=== PATIENT | male | born 1965 | race Hispanic/Latino ===

== ENCOUNTER 2020-07-16 13:09 | Emergency (ER) | payer SELFPAY ==
[2020-07-16] MEDS ORDERED: SODIUM CHLORIDE 0.9% 1000 ML 1,000 ML IV ONE (13:26)
[2020-07-16 14:00] VITALS: BP 165/94
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
[2020-07-16 15:17] LABS: Basophils # (Auto) 0.1 K/mm3 (0.0-0.1); Eosinophils # (Auto) 0.2 K/mm3 (0.0-0.4); Eosinophils % (Auto) 3.4 % (0.0-4.3); Hematocrit 43.3 % (35.5-45.6); Hemoglobin 14.8 gm/dl (11.8-15.2); Lymphocytes # (Auto) 1.4 K/mm3 (1.2-5.4); Lymphocytes % (Auto) 20.1 % (13.4-35.0); Mean Corpuscular HGB Conc 34 % (32-34); Mean Corpuscular Volume 87 fl (84-94); Monocytes # (Auto) 0.7 K/mm3 (0.0-0.8); Monocytes % (Auto) 10.2 % (0.0-7.3); Platelet Count 288 K/mm3 (140-440); Red Blood Count 4.95 M/mm3 (3.65-5.03); Red Cell Distribution Width 13.2 % (13.2-15.2)
[2020-07-16 15:22] LABS: Creatine Kinase MB 4.4 ng/mL (0.0-4.0)
[2020-07-16 15:23] LABS: Alanine Aminotransferase 37 units/L (7-56); Albumin 4.5 g/dL (3.9-5); BUN/Creatinine Ratio 19; Blood Urea Nitrogen 15 mg/dL (9-20); Calcium 9.3 mg/dL (8.4-10.2); Hemolysis Index 2
[2020-07-16 15:25] LABS: Partial Thromboplastin Time 28.2 Sec. (24.2-36.6)
[2020-07-16 15:26] LABS: Thrombin Time 17.2 Sec. (15.1-19.6)
== END 2020-07-16 15:25 | disposition left against medical advice (07) ==
LOC: ED 13:09
DX: S06.0X9A Concussion with loss of consciousness of unspecified duration, initial encounter (principal); R07.89 Other chest pain; Z87.891 Personal history of nicotine dependence; V49.69XA Unspecified car occupant injured in collision with other motor vehicles in traffic accident, initial encounter; Y93.89 Activity, other specified; Y92.488 Other paved roadways as the place of occurrence of the external cause; Y99.8 Other external cause status
CPT/HCPCS: 36415; 70450; 80053; 80320; 82550; 82553; 82962; 84484; 85025; 85610; 85670; 85730; G0480